=== PATIENT | female | born 1950 | race Caucasian/White ===

== ENCOUNTER 2019-02-05 11:52 | Emergency (ER) | payer OTHER ==
[~2019-02-05] VITALS: Ht 165.1 cm; Wt 73.9 kg
[2019-02-05 12:44] LABS: ABSOLUTE EOSINOPHILS 0.1 thou/uL (0.0-0.7); ABSOLUTE LYMPHOCYTES 0.8 thou/uL (0.8-5.3); ABSOLUTE MONOCYTES 0.4 thou/uL (0.0-1.2); ABSOLUTE NEUTROPHILS 3.1 thou/uL (1.6-8.1); EOSINOPHILS 2.2 %; HEMATOCRIT 39.5 % (37.0-47.0); HEMOGLOBIN 13.3 gm/dL (12.0-15.0); LYMPHOCYTES 18.2 %; MCH 31.5 pg (26.0-34.0); MCHC 33.6 g/dL (28.0-37.0); MCV 93.7 fL (80.0-100.0); MONOCYTES 9.4 %; MPV 9.3 fl. (7.2-11.1); NUCLEATED RBCS 0 /100WBC; PLATELET COUNT* 219 thou/uL (150-400); POLYS 69.2 %; RBC 4.22 mil/uL (4.20-5.00); RDW-CV 13.9 % (10.5-14.5); WBC 4.5 thou/uL (4.0-11.0)
[2019-02-05 12:53] LABS: ANION GAP 11 mmol/L (7-16); BUN 14 mg/dL (7-18); CALCIUM 9.4 mg/dL (8.5-10.1); CHLORIDE 106 mmol/L (98-107); CO2 26 mmol/L (21-32); GLUCOSE 90 mg/dL (70-99); SODIUM 143 mmol/L (136-145)
[2019-02-05 12:59] LABS: APTT 29.4 Seconds (25.0-31.3); PROTIME 10.4 Seconds (9.20-11.50)
[2019-02-05 13:11] LABS: ALKALINE PHOSPHATASE 78 U/L (46-116); CK-MB MASS 2.3 ng/mL (<0.5-3.6); LIPASE 120 U/L (73-393); NT-PRO BRAIN NAT PEPTIDE 433 pg/mL (<300); SGOT 19 U/L (15-37); SGPT 23 U/L (30-65); TOTAL BILIRUBIN 0.5 mg/dL (<0.1-1.0); TOTAL PROTEIN 7.6 g/dL (6.4-8.2); TROPONIN-I LEVEL <0.06 ng/mL (<0.06)
[2019-02-05 14:57] VITALS: BP 143/53
--- NOTE | 2019-02-05 17:22 | EKG ---
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
== END 2019-02-05 14:58 | disposition home or self-care (01) ==
LOC: M.ERS 11:52
PROVIDERS: Family Medicine
DX: R07.89 Other chest pain (principal); Z88.5 Allergy status to narcotic agent; Z88.8 Allergy status to other drugs, medicaments and biological substances